=== PATIENT | male | born 1945 | race Hispanic/Latino ===

== ENCOUNTER 2016-07-30 07:15 | Inpatient (IN) | payer MEDICARE ==
--- NOTE | 2016-07-25 11:41 | Anesthesia Consultation ---
Anesthesia Consult and Med Hx Date of service: 07/30/16 - Airway Anesthetic Teeth Evaluation: Edentulous ROM Head & Neck: Adequate Mental/Hyoid Distance: Adequate Mallampati Class: Class II Intubation Access Assessment: Probably Good - Pulmonary Exam CTA: Yes - Cardiac Exam Cardiac Exam: RRR - Pre-Operative Health Status ASA Pre-Surgery Classification: ASA3 Proposed Anesthetic Plan: Epidural, Spinal - Pulmonary Hx Smoking: No - Cardiovascular System Hx Hypertension: Yes (NO MEDICINES) Hx Heart Attack/AMI: No - Central Nervous System Hx Psychiatric Problems: No - Gastrointestinal Hx Gastroesophageal Reflux Disease: Yes - Endocrine Hx Non-Insulin Dependent Diabetes: Yes (mild) Hx Thyroid Disease: Yes (removed thyroid, takes synthroid) - Hematic Hx Anemia: Yes (POST OP/RESOLVED) - Other Systems Hx Alcohol Use: No (1 BEER ONCE A YEAR) Hx Substance Use: No Hx Cancer: Yes (Colon CX, has permenant colostomy bag) Hx Obesity: Yes
[2016-07-25 12:17] LABS: Basophils % (Auto) 0.8 % (0.0-1.8); Eosinophils % (Auto) 1.3 % (0.0-4.3); Hematocrit 44.2 % (35.5-45.6); Hemoglobin 14.9 gm/dl (11.8-15.2); Mean Corpuscular HGB Conc 34 % (32-34); Mean Corpuscular Hemoglobin 31 pg (28-32); Mean Corpuscular Volume 92 fl (84-94); Platelet Count 130 K/mm3 (140-440); Red Blood Count 4.81 M/mm3 (3.65-5.03); Red Cell Distribution Width 13.9 % (13.2-15.2); White Blood Count 8.4 K/mm3 (4.5-11.0)
[2016-07-25 12:21] LABS: Alanine Aminotransferase 13 units/L (7-56); Albumin 4.1 g/dL (3.9-5); Albumin/Globulin Ratio 1.2 %; Alkaline Phosphatase 47 units/L (35-129); Anion Gap 15 mmol/L; BUN/Creatinine Ratio 17.77; Bilirubin,Total 0.2 mg/dL (0.1-1.2); Blood Urea Nitrogen 16 mg/dL (9-20); Calcium 9.4 mg/dL (8.4-10.2); Carbon Dioxide 23 mmol/L (22-30); Chloride 104.7 mmol/L (98-107); Glucose 140 mg/dL (75-100); Sodium 139 mmol/L (137-145); Total Protein 7.4 g/dL (6.3-8.2)
[2016-07-25 12:27] LABS: Partial Thromboplastin Time 31.5 Sec. (24.2-36.6)
[~2016-07-30 07:15] MED LIST: PEPCID IV NR; VANCOMYCIN/NS 1 GM/250 ML 1 GM/250 ML BAG IV NR; VERSED IV NR
[2016-07-30] MEDS ORDERED: ZOFRAN IV PRN (08:30)
[2016-07-30] MEDS: NACL 0.9% 1000 ML 1,000 ML IV SCH ×2 (09:10→12:24)
--- NOTE | 2016-07-30 09:11 | Admit Criteria Form ---
Admission Criteria Documentation: AMBULATORY SURGERY EXCEPTION CRITERIA Ambulatory Surgery Exception Criteria ( Place 'X' for any and all applicable criteria): Surgery or procedure performed on ambulatory basis may require inpatient stay for[A] ANY ONE of the following(1)(2)(3)(4)(5)(6)(7)(8)(9): [X] I. A preoperative situation, condition, or finding that warrants inpatient stay as indicated by ANY ONE of the following: [] a) Inpatient care needed because of severity of a disease or condition rather than the surgery (eg, severe cardiac or respiratory disease, severe infection) (15) (16 ) (17) (18) [] b) Emergent procedure (eg, angioplasty for acute ischemia)(19) [] c) Complex surgical approach or situation as indicated by ANY ONE of the following(3): [] i) Open approach needed instead of usual endoscopic, transcatheter, or other less invasive procedure [] ii) Difficult approach because of previous operation [] iii) Airway monitoring required after open neck procedures(20)(21) [] iv) Large mass requiring unusually extensive dissection [] v) Additional complicating feature requiring inpatient care (eg, drain management)(22(23): [X] d) Major surgery in a pt with high anesthetic risk as indicated by ANY ONE of the following (2)(3)(5)(7)(8): [X] i) ASA risk class III or higher (severe systemic disease impairing function) [D] [] ii) Advanced age (eg, older than 85 years)(14)(24) [] iii) Symptomatic heart failure(25) [] iv) Symptomatic asthma or COPD(8)(21) [] v) Morbid obesity with hemodynamic or respiratory problems(20)( 21)(26)(27) [] vi) Obstructive sleep apnea(20)(21) [] vii) Former premature infants who are younger than 60 weeks [] viii) High risk for severe postoperative abnormalities (eg, severe postoperative hypocalcemia after parathyroidectomy for severe hyperparathyroidism)(27)( 28) [] ix) Unstable angina(25) [] e) Drug-related risk requiring inpatient stay as indicated by ANY ONE of the following(5)(10)(14)(32)(33) [] i) Procedure requires discontinuing drugs or other therapy (eg , antiarrhythmic medication, antiseizure medication), which necessitates inpatient observation or treatment.(18)(31) [] ii) Major surgery and high risk drug use as indicated by ANY ONE of the following: [] 1) Active abuse of cocaine or similar drug [] 2) Monoamine oxidase inhibitor use [] 3) Other drug identified as posing risk [] f) Inadequate outpatient care situation as indicated by ANY ONE of the following(5)(10)(14)(32)(33) [] i) Patient lives remote from medical facility and procedure has urgent complication potential, and temporary nearby residence cannot be arranged [] ii) Patient will have postprocedure incapacitation and inadequate assistance at home, or alternative level of care cannot be arranged. [] iii) Patient will have long general anesthesia or procedure side effect resolution time, and competent person to stay with patient on first postoperative night at home or alternative level of care cannot be arranged. []iv) Other inadequate outpatient situation that cannot be handled by other means [] II. A perioperative event, condition, or finding that warrants inpatient stay as indicated by ANY ONE of the following (1)(2)(3): [] a) Inadequate physiologic recovery: cardiovascular, respiratory, or hemodynamic status not normal or near preoperative baseline(18) [] b) Hemodynamic instability [] c) Patient not alert with near normal or baseline mental status [] d) Temperature not normal or as expected and not appropriate for outpatient treatment of condition [] e) Ambulatory or appropriate activity level status not yet achieved post procedure [E](34)(35)(36) [] f) Operative site not appropriate (eg, unexpected or excessive drainage or bleeding) [] g) Postoperative effects not resolved or adequately managed (eg, significant pain or vomiting not appropriate for outpatient or next level of care)(10)(12) [] h) Complicating features requiring inpatient care as indicated by ANY ONE of the following(37): [] i) Severe complications of procedure (eg, bowel injury, airway compromise, vascular injury,severe hemorrhage) [] ii) Extensive (eg, dissection far beyond usual scope of procedure ) or prolonged (eg, 120 minutes beyond usual) surgery needed requiring inpatient postoperative care [] iii) Conversion to an open or complex procedure that requires inpatient care (eg, open vs laparoscopic cholecystectomy, abdominal vs vaginal hysterectomy)(38) [] iv) Comorbid condition or test result identified during or post procedure that requires inpatient care (7) [] v) Malignant hyperthermia(30) [] vi) Other complicating feature requiring inpatient care(22)(23) Inpatient stay may be needed until ALL of the following are present (1)(2)(3)(4) (5)(6)(10)(14)(33)(40): []a) Physiologic recovery: cardiovascular, respiratory, and hemodynamic status normal or near preoperative baseline []b) Hemodynamic stability []c) Patient alert, with near normal or baseline mental status []d) Temperature appropriate: patient afebrile or temperature appropriate for outpt treatment of condition []e) Activity level appropriate: ambulatory or appropriate activity level post procedure []f) Operative site appropriate as indicated by ALL of the following: []i) Site dry or with expected drainage []ii) Any blood noted is as expected for procedure. []g) Postoperative effects resolved or managed as indicated by ALL of the following: []i) Pain management appropriate for outpatient (or next level of) care(10) []ii) Minimal nausea and vomiting: if present, successfully treated with oral medication(12) []iii) Headache, dizziness, or drowsiness (if present) are mild. []h) Voiding status acceptable as indicated by ANY ONE of the following: []i) Voiding spontaneously []ii) No voiding but instructions given for follow-up in 6 to 8 hours []iii) Urinary catheter in place, and instructions given for follow-up []i) Complicating features requiring inpatient care manageable at a lower level of care(37) []j) Comorbid conditions manageable at a lower level of care(37) The original [employer] content created by [employer] has been revised. The portions of the content which have been revised are identified through the use of italic text or in bold, and [facility] [employer] has neither reviewed nor approved the modified material. All other unmodified content is copyright [employer]. Please see references footnoted in the original [employer] edition 2016 Admission Criteria Met: Yes
[2016-07-30] MEDS ORDERED: SODIUM CHLORIDE FLUSH SYRINGE 10 ML IV PRN (10:42)
[2016-07-30] MEDS ORDERED: MORPHINE ONE (10:53)
[2016-07-30] MEDS ORDERED: DIPRIVAN 10 MG/ML IV ONE ×2 (11:56→13:03)
[2016-07-30] MEDS ORDERED: NEOSPORIN GU IR ONE ×2 (12:13→13:13)
[2016-07-30] MEDS ORDERED: TRANEXAMIC ACID ONE (12:13)
[2016-07-30] MEDS ORDERED: ACD-A 500 ML IV ONE (12:13)
[2016-07-30] MEDS ORDERED: NACL P/F VIAL (10 ML) 20 ML ONE (12:14)
[2016-07-30] MEDS ORDERED: DILAUDID ONE (12:35)
[2016-07-30] MEDS ORDERED: NACL 0.9% IR ONE (13:13)
[2016-07-30] MEDS ORDERED: NACL P/F VIAL (10 ML) INFILTRATI ONE ×2 (13:14→13:50)
[2016-07-30] MEDS ORDERED: ACD-A IV ONE (13:14)
[2016-07-30] MEDS ORDERED: TRANEXAMIC ACID IV ONE ×2 (13:14→13:50)
[2016-07-30] MEDS ORDERED: ZOFRAN ONE (13:17)
[2016-07-30] MEDS ORDERED: DECADRON ONE (13:17)
[2016-07-30] MEDS ORDERED: VANCOMYCIN VIAL ONE (13:38)
[2016-07-30] MEDS ORDERED: VANCOMYCIN VIAL IRRIGATION ONE (13:50)
--- NOTE | 2016-07-30 14:28 | Short Stay Summary ---
Short Stay Documentation Date of service: 07/30/16 - History H&P: obtained from office - Allergies and Medications Current Medications: Allergies No Known Allergies Allergy (Unverified 07/23/16 14:18) Home Medications Medication Instructions Recorded Confirmed Last Taken Type Esomeprazole Magnesium [NexIUM] 40 mg PO QDAY 07/23/16 07/23/16 07/29/16 History Gabapentin [Gralise] 300 mg PO TID 07/23/16 07/23/16 07/29/16 History Levothyroxine [Synthroid] 150 mcg PO QAM 07/23/16 07/30/16 07/30/16 04:30 History Meloxicam 15 mg PO QDAY 07/23/16 07/23/16 07/29/16 History Metformin HCl [Glucophage] 500 mg PO DAILY 07/23/16 07/23/16 07/29/16 History Oxycodone HCl/Acetaminophen 1 each PO Q6HR PRN 07/23/16 07/23/16 07/29/16 History [Percocet 10/325 mg] Active Medications Famotidine (Pepcid) 20 mg IV PREOP NR Stop: 07/30/16 23:59 Last Admin: 07/30/16 09:20 Dose: 20 mg Sodium Chloride (Nacl 0.9% 1000 Ml) 1,000 mls @ 75 mls/hr IV DIRECT TEE Stop: 07/30/16 23:59 Last Admin: 07/30/16 12:24 Dose: 75 mls/hr Vancomycin HCl (Vancomycin/Ns 1 Gm/250 Ml) 1 gm in 250 mls @ 166.667 mls/hr IV PREOP NR PRN Reason: Protocol Stop: 07/30/16 23:59 Last Admin: 07/30/16 11:08 Dose: 166.667 mls/hr Midazolam HCl (Versed) 2 mg IV PREOP NR Stop: 07/30/16 23:59 Last Admin: 07/30/16 10:57 Dose: 1 mg Ondansetron HCl (Zofran) 4 mg IV ONCE PRN PRN Reason: Nausea And Vomiting Stop: 07/30/16 16:00 Sodium Chloride (Sodium Chloride Flush Syringe 10 Ml) 10 ml IV PRN PRN PRN Reason: LINE FLUSH - Brief post op/procedure progress note Date of procedure: 07/30/16 Pre-op diagnosis: Djd left hip Post-op diagnosis: same Procedure: Left total hip replacement; PosteroLateral approach Anesthesia: TUSHAR Surgeon: KLARISSA REEVES Correctional Nurse: LESLEY BARRAGAN Estimated blood loss: other (autologous packed cells 125cc) - Disposition Condition at discharge: Stable Short Stay Discharge Plan Follow up with: Denisse REYES MD [Primary Care Provider] - 7 Days
--- NOTE | 2016-07-30 15:59 | Post Anesthesia Evaluation ---
- Post Anesthesia Evaluation Patient Participated: Yes Airway Patent: Yes Stable Respiratory Function: Yes Nausea/Vomiting: No Temp > 96.8F: Yes Pain Manageable: Yes Adequeate Hydration: Yes Anesthesia Complications: No Block Receding Appropriately: Not Applicable Patient on Ventilator: No
[2016-07-31] MEDS: NACL 0.9% 1000 ML 1,000 ML IV SCH (00:36)
[2016-07-31] MEDS: SYNTHROID PO SCH (07:56)
[2016-07-31] MEDS ORDERED: SYNTHROID PO SCH (10:00)
[2016-07-31] MEDS ORDERED: NON-FORMULARY (Esomeprazole Magnesium [Nexium] 40 MG) PO SCH (10:00)
[2016-07-31] MEDS: GLUCOPHAGE PO SCH (10:54)
[2016-07-31] MEDS: PROTONIX PO SCH (10:55)
--- NOTE | 2016-07-31 15:34 | Progress Note ---
Subjective Date of service: 07/31/16 Interval history: 1st POD after total hip arthroplasty Patient is in the bed, comfortable. Pain is well controlled with pain meds. No residual neurological deficit. Prepares to be ambulated by physical therapist. No anesthesia complications Objective - Constitutional Vitals: Vital Signs - 12hr 07/31/16 07/31/16 07/31/16 07:00 10:02 11:00 Temperature 98.6 F 98.8 F Pulse Rate [ 74 78 Left From Monitor] Respiratory 20 16 Rate Blood Pressure 122/68 136/80 [FROM MONITOR] O2 Sat by Pulse 98 96 Oximetry 07/31/16 12:00 Temperature 98.3 F Pulse Rate [ 112 H Left From Monitor] Respiratory 20 Rate Blood Pressure 129/82 [FROM MONITOR] O2 Sat by Pulse Oximetry - Labs CBC & Chem 7: 07/25/16 11:16 07/25/16 11:16 Labs: Abnormal lab results 07/30/16 07/31/16 07/31/16 Range/Units 22:32 07:22 11:47 POC Glucose 235 H 155 H 190 H (70-105)
--- NOTE | 2016-07-31 15:42 | Consultation ---
History of Present Illness - Reason for Consult Consult date: 07/31/16 Medical management Requesting physician: KLARISSA REEVES - History of Present Illness S/p L Hip replacement -post op doing well. Past History Past Medical History: arthritis, GERD, hypertension, hypothyroidism Past Surgical History: total hip replacement Social history: denies: smoking, alcohol abuse Family history: hypertension Medications and Allergies Allergies Allergy/AdvReac Type Severity Reaction Status Date / Time No Known Allergies Allergy Unverified 07/23/16 14:18 Home Medications Medication Instructions Recorded Confirmed Last Taken Type Esomeprazole Magnesium [NexIUM] 40 mg PO QDAY 07/23/16 07/23/16 07/29/16 History Gabapentin [Gralise] 300 mg PO TID 07/23/16 07/23/16 07/29/16 History Levothyroxine [Synthroid] 150 mcg PO QAM 07/23/16 07/30/16 07/30/16 04:30 History Meloxicam 15 mg PO QDAY 07/23/16 07/23/16 07/29/16 History Metformin HCl [Glucophage] 500 mg PO DAILY 07/23/16 07/23/16 07/29/16 History Oxycodone HCl/Acetaminophen 1 each PO Q6HR PRN 07/23/16 07/23/16 07/29/16 History [Percocet 10/325 mg] Active Meds: Active Medications Hydromorphone HCl (Dilaudid) 1 mg IV Q3H PRN PRN Reason: Pain , Severe (7-10) Levothyroxine Sodium (Synthroid) 150 mcg PO DAILY@0600 [facility] Last Admin: 07/31/16 07:56 Dose: 150 mcg Metformin HCl (Glucophage) 500 mg PO DAILY [facility] Last Admin: 07/31/16 10:54 Dose: 500 mg Pantoprazole Sodium (Protonix) 40 mg PO DAILY [facility] Last Admin: 07/31/16 10:55 Dose: 40 mg Sodium Chloride (Sodium Chloride Flush Syringe 10 Ml) 10 ml IV PRN PRN PRN Reason: LINE FLUSH Review of Systems All systems: negative Exam - Constitutional Vitals: Temp Pulse Resp BP Pulse Ox 98.3 F 112 H 20 129/82 96 07/31/16 12:00 07/31/16 12:00 07/31/16 12:00 07/31/16 12:00 07/31/16 10:02 General appearance: Present: no acute distress, well-nourished - EENT Eyes: Present: PERRL ENT: hearing intact, clear oral mucosa - Neck Neck: Present: supple, normal ROM - Respiratory Respiratory effort: normal Respiratory: bilateral: CTA - Cardiovascular Heart Sounds: Present: S1 & S2. Absent: rub, click - Extremities Extremities: pulses symmetrical, No edema Peripheral Pulses: within normal limits - Abdominal General gastrointestinal: Present: soft, non-tender, non-distended, normal bowel sounds Male genitourinary: Present: normal - Integumentary Integumentary: Present: clear, warm, dry - Musculoskeletal Musculoskeletal: gait normal, strength equal bilaterally - Psychiatric Psychiatric: appropriate mood/affect, intact judgment & insight - Neurologic Neurologic: CNII-XII intact, moves all extremities Results - Labs CBC & Chem 7: 07/25/16 11:16 07/25/16 11:16 Labs: Abnormal lab results 07/30/16 07/31/16 07/31/16 Range/Units 22:32 07:22 11:47 POC Glucose 235 H 155 H 190 H (70-105) Assessment and Plan - Patient Problems (1) H/O total hip arthroplasty Current Visit: Yes Status: Acute Qualifiers: Laterality: left Qualified Code(s): Z96.642 - Presence of left artificial hip joint (2) T2DM (type 2 diabetes mellitus) Current Visit: Yes Status: Acute Qualifiers: Diabetes mellitus complication status: without complication Diabetes mellitus complication detail: D Diabetic retinopathy severity: D Proliferative retinopathy type: P Diabetes mellitus macular edema: D Diabetes mellitus exterminator helper insulin use: D Laterality: L Chronic kidney disease stage: C (3) T2DM (type 2 diabetes mellitus) Current Visit: Yes Status: Acute Qualifiers: Diabetes mellitus complication status: D Diabetes mellitus complication detail: D Diabetic retinopathy severity: D Proliferative retinopathy type: P Diabetes mellitus macular edema: D Diabetes mellitus fpc insulin use : D Laterality: L Chronic kidney disease stage: C (4) Hypothyroidism Current Visit: Yes Status: Acute Qualifiers: Hypothyroidism type: H
[2016-07-31] MEDS: DILAUDID IV PRN ×2 (16:14→20:45)
--- NOTE | 2016-07-31 20:34 | Operative Report ---
PREOPERATIVE DIAGNOSIS: Osteoarthritis, left hip, severe. POSTOPERATIVE DIAGNOSIS: Osteoarthritis, left hip, severe. PROCEDURE: Left total hip replacement arthroplasty (posterolateral approach). SURGEON: Vivienne Hand MD STATISTICIAN THEORETICAL: Amanda Cook RN ANESTHESIA: General. COMPLICATIONS: None. PROCEDURE IN DETAIL: Once the patient was in the surgical table, a time-out was carried out to identify the patient and procedure, prepping and draping of the patient was done in the usual fashion. With the patient placed on the side with the hip up and the leg completely prepped out. The procedure was done by making a posterolateral approach to the hip joint. Dissection was carried out through the subcutaneous tissues. The tensor fascia alex split along the length of the wound exposing the posterolateral side of the acetabulum. The patient was found to have a severe hip contracture which was also released by doing a posterior capsulectomy and release of the piriformis tendon. Once it was done, the neck was cut and the femoral head was dislocated and removed from the field. The leg was measured full length. The procedure was continued at this point by preparation of the acetabulum. The acetabulum was exposed. the acetabulum was then reamed in a sequential basis and allowing for insertion of the 63 mm cup with a single compression screw. The liner was inserted. The was then exposed using a cookie cutter then pin was entered on the lateral side and reaming and rasping was done without any problem. A trial stem was inserted, trial neck and reduction carried out. Measurement of the area was done in full leg length. Once this was done, the hip was dislocated, the wound was irrigated, the femoral stem was inserted. The femoral neck ____. Reduction was carried out of the hip joint, the hip was repaired. The procedure terminated. The wound irrigated with tranexamic acid. The filtration of skin with Marcaine with epinephrine, closure of the wounds in layers closing the tensor fascia aelx, subcutaneous tissue and the skin. The compression bandage was applied. There were no complications. JOB# [id number] TONI/ASH
[2016-08-01] MEDS: DILAUDID IV PRN ×2 (06:06→10:04)
[2016-08-01] MEDS: SYNTHROID PO SCH (06:11)
[2016-08-01] MEDS: PROTONIX PO SCH (10:35)
[2016-08-01] MEDS: GLUCOPHAGE PO SCH (10:35)
[2016-08-01 12:00] VITALS: BP 147/80
== END 2016-08-01 16:00 | disposition home or self-care (01) | DRG 470 ==
LOC: 3A 07:15 → 2B-SURG 14:43
PROC: 0SBB0ZZ Excision of Left Hip Joint, Open Approach (ICD-10-PCS; principal; 2016-07-30)
PROC: 0LNK0ZZ Release Left Hip Tendon, Open Approach (ICD-10-PCS; principal; 2016-07-30)
PROC: 0SRB0JZ Replacement of Left Hip Joint with Synthetic Substitute, Open Approach (ICD-10-PCS; principal; 2016-07-30)
DX: M16.12 Unilateral primary osteoarthritis, left hip (principal); I10 Essential (primary) hypertension; K21.9 Gastro-esophageal reflux disease without esophagitis; E11.9 Type 2 diabetes mellitus without complications; E89.0 Postprocedural hypothyroidism; E66.9 Obesity, unspecified; D64.9 Anemia, unspecified; Z85.038 Personal history of other malignant neoplasm of large intestine; Z93.3 Colostomy status; Z68.31 Body mass index [BMI] 31.0-31.9, adult; M24.552 Contracture, left hip
CPT/HCPCS: 36415; 80053; 82962; 85025; 85610; 85730; 86850; 86900; 86901; 88305; 94760; C1776; G8978-GP; G8979-GP; J1100; J1170; J2250; J2270; J2405; J2704; J3370; J7030